=== PATIENT | male | born 1955 | race Caucasian/White ===

== ENCOUNTER 2017-03-27 12:06 | Observation (INO) | payer OTHER ==
[2017-03-27] VITALS (11 sets, daily range): BP systolic 123–215; BP diastolic 82–111; PULSE 73–95; RESP 16–22; TEMP 98.2–98.7; O2SAT 97–100
[~2017-03-27] VITALS: Ht 177.8 cm; Wt 95.5 kg
[~2017-03-27 12:06] MED LIST: ADVI200C9 PO; IBUP600T26 PO; METH750T2 PO; NAPR550 PO
[2017-03-27] MEDS ORDERED: NITROGLYCERIN 2% OINT 1 GM PACKET TOP ONE (12:30)
[2017-03-27] MEDS ORDERED: SODIUM CHLORIDE 0.9% FLUSH 10 ML FLUSH IVF PRN (12:30)
--- NOTE | 2017-03-27 12:32 | PD ---
HPI Chief Complaint: Cardiac Complaint Time Seen by Provider: 12:17 Travel History International Travel<30 days: No Contact w/Intl Traveler<30days: No Traveled to known affect area: No History of Present Illness HPI 62 y/o male presents with palpitations and gas-like feeling in his chest. He states he took 2 aspirin prior to coming in by ambulance today. His blood pressure was elevated with the ambulance team. He states he has not had his blood pressure checked for over a year and he doesn't remember what it was then. He does not take blood pressure medication. He states he has a lot of stressors going on in his life right now. He denies any thoughts of wanting to hurt himself. He denies any other concurrent complaints. Quality is gas-like. Severity is mild. PFSH Past Medical History Medical History: Denies Significant Hx Diminished Hearing: No Influenza Vaccination: No Social History Alcohol Use: Yes (RARELY) Tobacco Use: No Substance Use: No Allergies-Medications (Allergen,Severity, Reaction): Coded Allergies: Penicillins (Verified Allergy, Mild, 03/27/17) Reported Meds & Prescriptions Reported Meds & Active Scripts Active Robaxin (Methocarbamol) 750 Mg Tab 750 Mg PO TID PRN Ibuprofen 600 Mg Tab 600 Mg PO Q8H PRN Anaprox Ds (Naproxen Sodium) 550 Mg Tab 550 Mg PO BID Reported Advil (Ibuprofen) 200 Mg Cap 200 Mg PO DIRECTED Review of Systems Except as stated in HPI: all other systems reviewed are Neg Physical Exam Narrative GENERAL: Well-nourished, well-developed patient. SKIN: Warm and dry. HEAD: Normocephalic and atraumatic. EYES: No injection or drainage. ENT: No nasal drainage noted. NECK: Supple, trachea midline. CARDIOVASCULAR: Regular rate and rhythm RESPIRATORY: Breath sounds equal bilaterally. No accessory muscle use. GASTROINTESTINAL: Abdomen soft, non-tender, nondistended. EXTREMITIES: No edema. NEUROLOGICAL: Awake and alert. Motor and sensory grossly within normal limits. Normal speech. Data Data Last Documented VS Vital Signs Date Time Temp Pulse Resp B/P (MAP) Pulse Ox O2 Delivery O2 Flow Rate FiO2 03/27/17 14:43 78 18 152/94 (113) 99 Room Air Orders Orders Electrocardiogram (03/27/17 12:24) Ckmb (Isoenzyme) Profile (03/27/17 12:24) Complete Blood Count With Diff (03/27/17 12:24) Comprehensive Metabolic Panel (03/27/17 12:24) Magnesium (Mg) (03/27/17 12:24) Prothrombin Time / Inr (Pt) (03/27/17 12:24) Act Partial Throm Time (Ptt) (03/27/17 12:24) Troponin I (03/27/17 12:24) Lipase (03/27/17 12:24) Chest, Single Ap (03/27/17 12:24) Ecg Monitoring (03/27/17 12:24) Bilateral Bp Monitoring (03/27/17 12:24) Iv Access Insert/Monitor (03/27/17 12:24) Oximetry (03/27/17 12:24) Nitroglycerin 2% Oint (Nitroglycerin 2% (03/27/17 12:30) Sodium Chloride 0.9% Flush (Ns Flush) (03/27/17 12:30) Admit Order (Ed Use Only) (03/27/17 14:56) Labs Laboratory Tests Test 03/27/17 12:30 White Blood Count 5.8 TH/MM3 Red Blood Count 4.83 MIL/MM3 Hemoglobin 15.3 GM/DL Hematocrit 44.2 % Mean Corpuscular Volume 91.5 FL Mean Corpuscular Hemoglobin 31.7 PG Mean Corpuscular Hemoglobin Concent 34.6 % Red Cell Distribution Width 13.1 % Platelet Count 170 TH/MM3 Mean Platelet Volume 9.3 FL Neutrophils (%) (Auto) 54.8 % Lymphocytes (%) (Auto) 34.9 % Monocytes (%) (Auto) 7.5 % Eosinophils (%) (Auto) 2.0 % Basophils (%) (Auto) 0.8 % Neutrophils # (Auto) 3.2 TH/MM3 Lymphocytes # (Auto) 2.0 TH/MM3 Monocytes # (Auto) 0.4 TH/MM3 Eosinophils # (Auto) 0.1 TH/MM3 Basophils # (Auto) 0.0 TH/MM3 CBC Comment DIFF FINAL Differential Comment Prothrombin Time 11.3 SEC Prothromb Time International Ratio 1.0 RATIO Activated Partial Thromboplast Time 25.4 SEC Blood Urea Nitrogen 11 MG/DL Creatinine 1.18 MG/DL Random Glucose 120 MG/DL Total Protein 8.6 GM/DL Albumin 4.1 GM/DL Calcium Level 9.7 MG/DL Magnesium Level 1.7 MG/DL Alkaline Phosphatase 61 U/L Aspartate Amino Transf (AST/SGOT) 109 U/L Alanine Aminotransferase (ALT/SGPT) 129 U/L Total Bilirubin 0.7 MG/DL Sodium Level 135 MEQ/L Potassium Level 3.7 MEQ/L Chloride Level 103 MEQ/L Carbon Dioxide Level 23.3 MEQ/L Anion Gap 9 MEQ/L Estimat Glomerular Filtration Rate 62 ML/MIN Total Creatine Kinase 96 U/L Troponin I LESS THAN 0.02 NG/ML Lipase 205 U/L MDM Medical Decision Making Medical Screen Exam Complete: Yes Emergency Medical Condition: Yes Medical Record Reviewed: Yes (pmh confirmed) Interpretation(s) EKG is sinus rhythm at 90, mild ST depression V2, V3 without ST elevation or T- wave inversion CBC & BMP Diagram 03/27/17 12:30 Total Protein 8.6 H, Albumin 4.1, Calcium Level 9.7, Magnesium Level 1.7, Alkaline Phosphatase 61, Aspartate Amino Transf (AST/SGOT) 109 H, Alanine Aminotransferase (ALT/SGPT) 129 H, Total Bilirubin 0.7 Last 24 hours Impressions Chest X-Ray 03/27/17 1224 Signed Impressions: Service Date/Time: March 12:44 - CONCLUSION: The lungs are clear. Diony Maciel MD Differential Diagnosis Cardiac, anxiety, electrolyte abnormality, hypertensive urgency Narrative Course Will check blood work, chest x-ray and reevaluate ED workup no acute. Lengthy discussion with patient about chest pain observation for fullness to upper stomach with palpitation feeling and he agrees to monitoring which I think is appropriate given age and EKG changes with elevated blood pressure. Diagnosis Primary Impression: Chest pain Qualified Codes: R07.9 - Chest pain, unspecified Additional Impression: Hypertension Qualified Codes: I10 - Essential (primary) hypertension Admitting Information Admitting Physician Requests: Observation Lacey Ramos MD Mar 27, 2017 12:32
[2017-03-27 12:48] LABS: AUTOMATED NEUTROPHIL # 3.2 TH/MM3 (1.8-7.7); BASOPHIL % 0.8 % (0.0-2.0); EOSINOPHIL # 0.1 TH/MM3 (0-0.4); HEMATOCRIT 44.2 % (39.0-51.0); HEMO FLAGS DIFF FINAL; LYMPH % 34.9 % (9.0-44.0); MEAN CELL VOLUME 91.5 FL (80.0-100.0); MEAN CORPUSCULAR HEMOGLOBIN 31.7 PG (27.0-34.0); MEAN CORPUSCULAR HGB CONC 34.6 % (32.0-36.0); MONO % 7.5 % (0.0-8.0); NEUT % 54.8 % (16.0-70.0); PLATELET COUNT 170 TH/MM3 (150-450); RED BLOOD COUNT 4.83 MIL/MM3 (4.50-5.90); RED CELL DISTRIBUTION WIDTH 13.1 % (11.6-17.2); WHITE BLOOD COUNT 5.8 TH/MM3 (4.0-11.0)
[2017-03-27 12:57] LABS: APTT (PATIENT) 25.4 SEC (24.3-30.1); PROTHROMBIN TIME - PATIENT 11.3 SEC (9.8-11.6)
[2017-03-27 13:04] LABS: ANION GAP 9 MEQ/L (5-15); AST (GOT) 109 U/L (15-37); BICARBONATE 23.3 MEQ/L (21.0-32.0); BLOOD UREA NITROGEN 11 MG/DL (7-18); CHLORIDE 103 MEQ/L (98-107); GLOMERULAR FILTRATION RATE 62 ML/MIN (>89); MAGNESIUM 1.7 MG/DL (1.5-2.5); POTASSIUM 3.7 MEQ/L (3.5-5.1); SODIUM (NA) 135 MEQ/L (136-145)
[2017-03-27 13:06] LABS: ALT (GPT) 129 U/L (12-78)
[2017-03-27 13:09] LABS: ALKALINE PHOSPHATASE 61 U/L (45-117); TOTAL BILIRUBIN ADULT 0.7 MG/DL (0.2-1.0)
[2017-03-27 13:15] LABS: CREATINE KINASE 96 U/L (39-308)
--- NOTE | 2017-03-27 13:16 | RADRPT ---
EXAM DATE/TIME: 03/27/2017 12:44 [facility] COMPARISON: No previous studies available for comparison. INDICATIONS : Chest palpitations today. MEDICAL HISTORY : None. SURGICAL HISTORY : None. ENCOUNTER: Initial ACUITY: 1 day PAIN SCORE: 2/10 LOCATION: Bilateral chest FINDINGS: A single view of the chest demonstrates the lungs to be symmetrically aerated without evidence of mas s, infiltrate or effusion. The cardiomediastinal contours are unremarkable. Osseous structures are intact. CONCLUSION: The lungs are clear. Diony Maciel MD on March 27, 2017 at 13:05 Board Certified Radiologist. This report was verified electronically.
[2017-03-27] MEDS ORDERED: cloNIDine HCL 0.1 MG TAB PO PRN (16:00)
[2017-03-27] MEDS ORDERED: ALPRAZolam 0.25 MG TAB PO PRN (16:00)
[2017-03-27] MEDS: PANTOPRAZOLE SOD 40 MG DELAYED RELEASE TAB PO SCH (16:00)
[2017-03-27] MEDS ORDERED: LORazepam 2 MG/ML VIAL IV PUSH ONE (16:00)
[2017-03-27] MEDS ORDERED: ACETAMINOPHEN 500 MG CPLT PO PRN (16:00)
[2017-03-27] MEDS ORDERED: RESP: ALBUTEROL 2.5 MG/IPRATROPIUM 0.5 MG NEB (PRN) INH (16:00)
[2017-03-27] MEDS ORDERED: ACETAMINOPHEN/HYDROcodone 325 MG/7.5 MG TAB PO PRN (16:00)
[2017-03-27] MEDS ORDERED: SODIUM CHLORIDE 0.9% FLUSH 5 ML FLUSH IVF PRN (16:00)
[2017-03-27] MEDS ORDERED: ONDANSETRON HCL 4 MG/2 ML VIAL IV PUSH PRN (16:00)
--- NOTE | 2017-03-27 16:14 | HHI.HP ---
HPI Primary Care Physician No Primary Care Physician Chief Complaint Palpitations/rapid heart rate History of Present Illness 61 yo white male who has noticed some heart palpitations primarily after eating over the last few months. This morning after stooping to feed his cats, he had a short episode of fast heart rate that scared him. He had no pain at all, no SOB, no diaphoresis and no nausea. The palpitations lasted only a minute or so but he called [facility] because it scared him. He starts crying with multiple questions during the history and clearly is very anxious and admits to being emotionally upset. He has difficulty explaining what it is he is feeling, again crying repeatedly without being able to explain why. Stress includes living alone, no family here. Loss of estranged father in November. Loss of his job in December. Difficulty paying the bills and can't fing another job. Onset: this morning Character:palpitations only Location: Severity: Radiation: Duration:a minute or so Associated Symptoms: none Precipitating or Relieving Factors: Review of Systems Cardiovascular: COMPLAINS OF: See HPI Been feeling a lot of emotions and stress in recent months Past Family Social History Allergies: Coded Allergies: Penicillins (Verified Allergy, Mild, 03/27/17) Past Medical History None of significance Past Surgical History Surgery recently by Dr. 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 Denies ETOH, Drugs or illicit substances Physical Exam Vital Signs Vital Signs Date Time Temp Pulse Resp B/P (MAP) Pulse Ox O2 Delivery O2 Flow Rate FiO2 03/27/17 15:29 88 21 139/84 (102) 100 Room Air 03/27/17 14:43 78 18 152/94 (113) 99 Room Air 03/27/17 13:50 80 16 166/98 (120) 99 03/27/17 12:28 91 16 192/111 (138) 100 Room Air 03/27/17 12:24 93 Room Air 03/27/17 12:18 95 21 215/106 (142) 99 Physical Exam GENERAL: WNWD but very anxious SKIN: Warm and dry. Tattoo HEAD: Atraumatic. Normocephalic. EYES: Pupils equal and round. No scleral icterus. No injection or drainage. EOMI ENT: No nasal bleeding or discharge. Mucous membranes pink and moist. NECK: Trachea midline. No JVD. CARDIOVASCULAR: Regular rate and rhythm. NO GRM RESPIRATORY: Auscultation. Breath sounds equal bilaterally. GASTROINTESTINAL: Abdomen soft, non-tender, nondistended. No GR. Hepatic and splenic margins not palpable. MUSCULOSKELETAL: Extremities without clubbing, cyanosis, or edema. No obvious deformities. NEUROLOGICAL: Awake and alert. No obvious cranial nerve deficits. Motor grossly within normal limits. Five out of 5 muscle strength in the arms and legs. Normal speech. PSYCHIATRIC: Anxious mood and affect; insight and judgment questionable.. Laboratory Laboratory Tests Test 03/27/17 12:30 White Blood Count 5.8 Red Blood Count 4.83 Hemoglobin 15.3 Hematocrit 44.2 Mean Corpuscular Volume 91.5 Mean Corpuscular Hemoglobin 31.7 Mean Corpuscular Hemoglobin Concent 34.6 Red Cell Distribution Width 13.1 Platelet Count 170 Mean Platelet Volume 9.3 Neutrophils (%) (Auto) 54.8 Lymphocytes (%) (Auto) 34.9 Monocytes (%) (Auto) 7.5 Eosinophils (%) (Auto) 2.0 Basophils (%) (Auto) 0.8 Neutrophils # (Auto) 3.2 Lymphocytes # (Auto) 2.0 Monocytes # (Auto) 0.4 Eosinophils # (Auto) 0.1 Basophils # (Auto) 0.0 CBC Comment DIFF FINAL Differential Comment Prothrombin Time 11.3 Prothromb Time International Ratio 1.0 Activated Partial Thromboplast Time 25.4 Blood Urea Nitrogen 11 Creatinine 1.18 Random Glucose 120 Total Protein 8.6 Albumin 4.1 Calcium Level 9.7 Magnesium Level 1.7 Alkaline Phosphatase 61 Aspartate Amino Transf (AST/SGOT) 109 Alanine Aminotransferase (ALT/SGPT) 129 Total Bilirubin 0.7 Sodium Level 135 Potassium Level 3.7 Chloride Level 103 Carbon Dioxide Level 23.3 Anion Gap 9 Estimat Glomerular Filtration Rate 62 Total Creatine Kinase 96 Troponin I LESS THAN 0.02 Lipase 205 Result Diagram: 03/27/17 1230 03/27/17 1230 Imaging CXR NEG Course Will relieve his anxiety, evaluate and manage the BP and R.O ischemia by protocol Caprini VTE Risk Assessment Caprini VTE Risk Assessment: No/Low Risk (score <= 1) Caprini Risk Assessment Model Point Value = 1 Point Value = 2 Point Value = 3 Point Value = 5 Age 41-60 Minor surgery BMI > 25 kg/m2 Swollen legs Varicose veins or History of unexplained or recurrent spontaneous Oral contraceptives or hormone replacement Sepsis (< 1 month) Serious lung disease, including pneumonia (< 1 month) Abnormal pulmonary function Acute myocardial infarction Congestive heart failure (< 1 month) History of inflammatory bowel disease Medical patient at bed rest Age 61-74 Arthroscopic surgery Major open surgery (> 45 min) Laparoscopic surgery (> 45 min) Malignancy Confined to bed (> 72 hours) Immobilizing plaster cast Central venous access Age >= 75 History of VTE Family history of VTE Factor V Leiden Prothrombin [id number] Lupus anticoagulant Anticardiolipin antibodies Elevated serum homocysteine Heparin-induced thrombocytopenia Other congenital or acquired thrombophilia Stroke (< 1 month) Elective arthroplasty Hip, pelvis, or leg fracture Acute spinal cord injury (< 1 month) Prophylaxis Regimen Total Risk Factor Score Risk Level Prophylaxis Regimen 0-1 Low Early ambulation 2 Moderate Order ONE of the following: *Sequential Compression Device (SCD) *Heparin 5000 units SQ BID 3-4 Higher Order ONE of the following medications: *Heparin 5000 units SQ TID *Enoxaparin/Lovenox 40 mg SQ daily (WT < 150 kg, CrCl > 30 mL/min) *Enoxaparin/Lovenox 30 mg SQ daily (WT < 150 kg, CrCl > 10-29 mL/min) *Enoxaparin/Lovenox 30 mg SQ BID (WT < 150 kg, CrCl > 30 mL/min) AND/OR *Sequential Compression Device (SCD) 5 or more Highest Order ONE of the following medications: *Heparin 5000 units SQ TID (Preferred with Epidurals) *Enoxaparin/Lovenox 40 mg SQ daily (WT < 150 kg, CrCl > 30 mL/min) *Enoxaparin/Lovenox 30 mg SQ daily (WT < 150 kg, CrCl > 10-29 mL/min) *Enoxaparin/Lovenox 30 mg SQ BID (WT < 150 kg, CrCl > 30 mL/min) AND *Sequential Compression Device (SCD) Benigno Chávez MD Mar 27, 2017 16:14
[2017-03-27 18:41] LABS: CREATINE KINASE 83 U/L (39-308)
[2017-03-27 19:04] LABS: CREATINE KINASE 85 U/L (39-308)
[2017-03-27] MEDS: SODIUM CHLORIDE 0.9% FLUSH 5 ML FLUSH IVF SCH (21:00)
[2017-03-28] VITALS: PULSE 72
[2017-03-28 00:03] VITALS: BP 117/69; PULSE 75; RESP 18; TEMP 98.4; O2SAT 97
[2017-03-28 03:46] VITALS: BP 115/69; PULSE 63; RESP 17; TEMP 98.2; O2SAT 98
[2017-03-28 04:00] VITALS: PULSE 66
[2017-03-28 07:11] VITALS: O2SAT 95
[2017-03-28 08:00] VITALS: BP 132/85; PULSE 64; RESP 16; TEMP 97.6; O2SAT 96
[2017-03-28] MEDS: PANTOPRAZOLE SOD 40 MG DELAYED RELEASE TAB PO SCH (09:00)
[2017-03-28] MEDS: SODIUM CHLORIDE 0.9% FLUSH 5 ML FLUSH IVF SCH (09:00)
[2017-03-28] MEDS ORDERED: ASPIRIN 325 MG TAB PO SCH (09:00)
--- NOTE | 2017-03-28 09:39 | PD.CARD.PN ---
Subjective Subjective Remarks No complaints overnight. Expresses concern over completing any form of cardiac testing, stating he would like to go home. Objective Medications Current Medications Medications (Trade) Dose Ordered Sig/Karma Route Start Time Stop Time Status Last Admin (NS Flush) 2 ml UNSCH PRN IVF 03/27/17 12:30 (NS Flush) 2 ml UNSCH PRN IVF 03/27/17 16:00 (NS Flush) 2 ml BID IVF 03/27/17 21:00 03/27/17 21:00 (Tylenol) 500 mg Q4H PRN PO 03/27/17 16:00 ([place] 7.5-325 Mg) 1 tab Q4H PRN PO 03/27/17 16:00 (Zofran Inj) 4 mg Q6H PRN IV PUSH 03/27/17 16:00 (Protonix) 40 mg DAILY PO 03/27/17 16:00 (Aspirin) 325 mg DAILY PO 03/28/17 09:00 (Xanax) 0.25 mg Q8H PRN PO 03/27/17 16:00 (Duoneb Neb) 1 ampule Q4HR NEB PRN INH 03/27/17 16:00 (Catapres) 0.1 mg Q4H PRN PO 03/27/17 16:00 Vital Signs / I&O Vital Signs Date Time Temp Pulse Resp B/P (MAP) Pulse Ox O2 Delivery O2 Flow Rate FiO2 03/28/17 08:00 97.6 64 16 132/85 (101) 96 03/28/17 07:11 95 21 03/28/17 04:00 66 03/28/17 03:46 98.2 63 17 115/69 (84) 98 03/28/17 00:03 98.4 75 18 117/69 (85) 97 03/28/17 00:00 72 03/27/17 20:25 98 21 03/27/17 20:00 84 03/27/17 19:42 98.2 82 17 123/82 (96) 97 03/27/17 17:54 80 18 166/98 (120) 99 03/27/17 17:29 98.7 73 22 159/97 (117) 99 03/27/17 17:07 98 21 03/27/17 15:29 88 21 139/84 (102) 100 Room Air 03/27/17 14:43 78 18 152/94 (113) 99 Room Air 03/27/17 13:50 80 16 166/98 (120) 99 03/27/17 12:28 91 16 192/111 (138) 100 Room Air 03/27/17 12:24 93 Room Air 03/27/17 12:18 95 21 215/106 (142) 99 Physical Exam Gen: A+Ox3, no acute distress, appears moderately anxious, WD, WN Cardiac: RRR, no rub, gallop, or murmur, Resp: Lungs CTA, roomair, able to speak in full sentences, symmetrical Skin: Warm, dry Psych: Appropriate speech, affect. Moderately anxious. Judgment may be slightly altered due to anxiety as he states "he wants to go home to feed cats." Laboratory Laboratory Tests Test 03/27/17 12:30 03/27/17 18:00 03/27/17 18:30 White Blood Count 5.8 TH/MM3 Red Blood Count 4.83 MIL/MM3 Hemoglobin 15.3 GM/DL Hematocrit 44.2 % Mean Corpuscular Volume 91.5 FL Mean Corpuscular Hemoglobin 31.7 PG Mean Corpuscular Hemoglobin Concent 34.6 % Red Cell Distribution Width 13.1 % Platelet Count 170 TH/MM3 Mean Platelet Volume 9.3 FL Neutrophils (%) (Auto) 54.8 % Lymphocytes (%) (Auto) 34.9 % Monocytes (%) (Auto) 7.5 % Eosinophils (%) (Auto) 2.0 % Basophils (%) (Auto) 0.8 % Neutrophils # (Auto) 3.2 TH/MM3 Lymphocytes # (Auto) 2.0 TH/MM3 Monocytes # (Auto) 0.4 TH/MM3 Eosinophils # (Auto) 0.1 TH/MM3 Basophils # (Auto) 0.0 TH/MM3 CBC Comment DIFF FINAL Differential Comment Prothrombin Time 11.3 SEC Prothromb Time International Ratio 1.0 RATIO Activated Partial Thromboplast Time 25.4 SEC Blood Urea Nitrogen 11 MG/DL Creatinine 1.18 MG/DL Random Glucose 120 MG/DL Total Protein 8.6 GM/DL Albumin 4.1 GM/DL Calcium Level 9.7 MG/DL Magnesium Level 1.7 MG/DL Alkaline Phosphatase 61 U/L Aspartate Amino Transf (AST/SGOT) 109 U/L Alanine Aminotransferase (ALT/SGPT) 129 U/L Total Bilirubin 0.7 MG/DL Sodium Level 135 MEQ/L Potassium Level 3.7 MEQ/L Chloride Level 103 MEQ/L Carbon Dioxide Level 23.3 MEQ/L Anion Gap 9 MEQ/L Estimat Glomerular Filtration Rate 62 ML/MIN Total Creatine Kinase 96 U/L 83 U/L 85 U/L Troponin I LESS THAN 0.02 NG/ML LESS THAN 0.02 NG/ML LESS THAN 0.02 NG/ML Lipase 205 U/L Imaging Last 24 hours Impressions Chest X-Ray 03/27/17 1224 Signed Impressions: Service Date/Time: March 12:44 - CONCLUSION: The lungs are clear. Diony Maciel MD Assessment and Plan Assessment and Plan #1 Atypical chest pain-ruled out with 3 sets of EKG and cardiac enzymes. Discussed difference between chemical and exercise cardiac testing. Dr. Chávez also spoke with patient in length regarding cardiac testing. After discussion with Dr. Chávez, patient feels more comfortable completing an exercise stress test this morning. If cardiac stress test unremarkable, plans to discharge home later this morning. Patient agreeable to plan of care. #2 Anxiety-Xanax PRN previously ordered, however does not feel comfortable taking medication Elyssa Guerrero Mar 28, 2017 09:39
--- NOTE | 2017-03-28 10:36 | EKG ---
Date Performed: 03/27/2017 Time Performed: 19:47:47 PTAGE: 62 years EKG: Sinus rhythm NONSPECIFIC ST ELEVATION AND DEPRESSION IN V2 BORDERLINE ECG NO SIG CHANGE PREVIOUS TRACING : 03/27/2017 17.43 DOCTOR: Benigno Chávez Interpretating Date/Time 03/28/2017 10:34:17
--- NOTE | 2017-03-28 10:36 | EKG ---
Date Performed: 03/27/2017 Time Performed: 17:43:51 PTAGE: 62 years EKG: Sinus rhythm NS ST-T CHANGES BUT LARGLY UNCHANGED FROM PRIOR BORDERLINE ECG PREVIOUS TRACING : 03/27/2017 12.21 DOCTOR: Benigno Chávez Interpretating Date/Time 03/28/2017 10:35:36
--- NOTE | 2017-03-28 10:37 | EKG ---
Date Performed: 03/27/2017 Time Performed: 12:21:14 PTAGE: 62 years EKG: Sinus rhythm WITH FIRST DEGREE AV BLOCK MINIMAL ST DEPRESSION ABNORMAL ECG NO SIG CHANGE NO PREVIOUS TRACING DOCTOR: Benigno Chávez Interpretating Date/Time 03/28/2017 10:37:38
[2017-03-28] MEDS ORDERED: RANI150C PO (11:07)
--- NOTE | 2017-03-28 11:09 | HHI.DCPOC ---
Discharge Care Plan Diagnosis: (1) Atypical chest pain (2) Situational stress (3) GERD (gastroesophageal reflux disease) Goals to Promote Your Health * To prevent worsening of your condition and complications * To maintain your health at the optimal level Directions to Meet Your Goals Take your medications as prescribed Follow your dietary instruction Follow activity as directed Keep your appointments as scheduled Take your immunizations and boosters as scheduled If your symptoms worsen call your PCP, if no PCP go to Urgent Care Center or Emergency Room Smoking is Dangerous to Your Health. Avoid second hand smoke Call the 24-hour hour crisis hotline for domestic abuse at Elyssa Guerrero Mar 28, 2017 11:09
--- NOTE | 2017-03-28 11:12 | HHI.DS ---
Discharge Summary Admission Date Mar 27, 2017 at 14:58 Discharge Date: Mar 28, 2017 Admitting Diagnosis chest pain (1) GERD (gastroesophageal reflux disease) ICD Codes: K21.9 - Gastro-esophageal reflux disease without esophagitis (2) Atypical chest pain ICD Codes: R07.89 - Other chest pain (3) Situational stress ICD Codes: F43.9 - Reaction to severe stress, unspecified Brief History 62-year-old male presented to the emergency room for further evaluation of palpitations. Endorses current situational stress and anxiety. The chest pain center. Ruled out with 3 sets of EKGs and cardiac enzymes. Proceed with exercise stress test, no signs of ischemia. CBC/BMP: 03/27/17 1230 03/27/17 1230 Significant Findings Laboratory Tests Test 03/27/17 12:30 03/27/17 18:00 03/27/17 18:30 Random Glucose 120 MG/DL (74-106) Total Protein 8.6 GM/DL (6.4-8.2) Aspartate Amino Transf (AST/SGOT) 109 U/L (15-37) Alanine Aminotransferase (ALT/SGPT) 129 U/L (12-78) Sodium Level 135 MEQ/L (136-145) Estimat Glomerular Filtration Rate 62 ML/MIN (>89) Troponin I LESS THAN 0.02 NG/ML LESS THAN 0.02 NG/ML LESS THAN 0.02 NG/ML Imaging Last Impressions Chest X-Ray 03/27/17 1224 Signed Impressions: Service Date/Time: March 12:44 - CONCLUSION: The lungs are clear. Diony Maciel MD PE at Discharge GENERAL: Alert WN, WD, NAD, anxious, male HEAD: NC, AT CV: RRR, without murmur, rub, gallop, no JVD, S1-S2 no S3-S4. RESP: Clear lungs throughout bilateral, no crackles, wheeze, rhonchi, symmetrical chest rise, nonlabored, able to speak in full sentences EXT: Pulses +24, no dependent edema MS: Normal tone 4 extremities, full range of motion NEURO: motor strength 5/5, gait WNL PSYCH: A+O 3, pleasant affect, appropriate speech, mood, insight and judgment. Anxiety improved after completing exercise stress testing. Pt Condition on Discharge: Good Discharge Disposition: Discharge Home Discharge Instructions DIET: Follow Instructions for: Heart Healthy Diet Activities you can perform: Regular-No Restrictions Elyssa Guerrero Mar 28, 2017 11:12
--- NOTE | 2017-03-28 16:38 | TR ---
Date Performed: 03/28/2017 Time Performed: 09:52:39 DOCTOR: Benigno Chávez DRUG LIST: CLINICAL HISTORY: CHEST PAIN REASON FOR TEST: REASON FOR ENDING: OBSERVATION: CONCLUSION: Jefe protocol completed. Stopped sec to leg fatigue, concern over being able to wal [place] safely in next stage, and reaching target heart rate. Maximum YL=325 Target HR Achieved=86.0% Maxim um ZU=119/80 Total Exercise Time=3:01. No reprod chest discomfort. No st segment changes to sugg isch emia. Occassional PVCs. Normal bp response. Recovery quick and unremarkable. COMMENTS: Low probability for severe ischemic event. He did show some ST depression but this wa s associated with upsloping ST segments, not diagnostic of ischemia. However, FU evaluation with his PCP and repeat testing in the future is recommended.
== END 2017-03-28 12:45 | disposition home or self-care (01) ==
LOC: NEPC 12:06 → NEDA 14:58 → NEPFCDU 17:05
PROVIDERS: ADMIT Internal Medicine Cardiovascular Disease; ATTEND Internal Medicine Cardiovascular Disease
DX: R07.89 Other chest pain (principal); I10 Essential (primary) hypertension; F41.9 Anxiety disorder, unspecified; K21.9 Gastro-esophageal reflux disease without esophagitis; F43.9 Reaction to severe stress, unspecified; R94.31 Abnormal electrocardiogram [ECG] [EKG]
CPT/HCPCS: 71010; 80053; 82550; 83690; 83735; 84484; 85025; 85610; 85730; 93005; 93017; 99285; G0378

== ENCOUNTER 2017-08-17 19:38 | Emergency (ER) | payer SELFPAY ==
[~2017-08-17] VITALS: Ht 180.3 cm; Wt 91.6 kg
[~2017-08-17 19:38] MED LIST changes: -ADVI200C9 PO; -IBUP600T26 PO; -METH750T2 PO; -NAPR550 PO; +RANI150C PO
[2017-08-17 19:47] VITALS: BP 160/93; PULSE 67; RESP 18; TEMP 97.8; O2SAT 97
[2017-08-17 22:09] VITALS: BP 161/94; PULSE 63; RESP 18; O2SAT 98
--- NOTE | 2017-08-17 22:19 | PD ---
HPI Chief Complaint: cough Time Seen by Provider: 21:51 Travel History International Travel<30 days: No Contact w/Intl Traveler<30days: No Traveled to known affect area: No History of Present Illness HPI 62yo M with no significant PMH presents to the ED with c/o cough and hiccup since yesterday. Said he was at work when he felt throat irritation and then started coughing. After coughing, he had hiccups. Said he had intermittent nausea but that has resolved. Unknown if it was perfume or some other spray that irritated him. Denies any fever, chest pain, sob, vomiting, abdominal pain , focal weakness or numbness. PFSH Past Medical History Blood Disorders: No Anxiety: Yes Depression: Yes Cancer: No Cardiovascular Problems: Yes Chest Pain: Yes Diminished Hearing: No Endocrine: No Gastrointestinal Disorders: No Genitourinary: No Hypertension: Yes Immune Disorder: No Implanted Vascular Access Dvce: No Musculoskeletal: Yes (left shoulder -rotator cuff) Neurologic: No Psychiatric: Yes Reproductive: No Respiratory: No Tetanus Vaccination: > 5 Years Influenza Vaccination: No Past Surgical History Other Surgery: Yes (leftr shoulder ) Family History Family Myocardial Infarction: No Social History Alcohol Use: Yes (RARELY) Tobacco Use: No Substance Use: No Allergies-Medications (Allergen,Severity, Reaction): Coded Allergies: Penicillins (Verified Allergy, Mild, 08/17/17) Reported Meds & Prescriptions Reported Meds & Active Scripts Active Ranitidine (Ranitidine HCl) 150 Mg Cap 150 Mg PO DAILY Review of Systems Except as stated in HPI: all other systems reviewed are Neg Physical Exam Narrative GENERAL: 62yo M not in distress. SKIN: Focused skin assessment warm/dry. HEAD: Atraumatic. Normocephalic. EYES: Pupils equal and round. No scleral icterus. No injection or drainage. ENT: Throat: Clear. Uvula midline. NECK: Trachea midline. No JVD. CARDIOVASCULAR: Regular rate and rhythm. No murmur appreciated. RESPIRATORY: No accessory muscle use. Clear to auscultation. Breath sounds equal bilaterally. GASTROINTESTINAL: Abdomen soft, non-tender, nondistended. +Umbilical hernia that is soft and reducible and not tender to palpation. MUSCULOSKELETAL: No obvious deformities. No clubbing. No cyanosis. No edema. NEUROLOGICAL: Awake and alert. No obvious cranial nerve deficits. Motor grossly within normal limits. Normal speech. PSYCHIATRIC: Appropriate mood and affect; insight and judgment normal. Data Data Last Documented VS Vital Signs Date Time Temp Pulse Resp B/P (MAP) Pulse Ox O2 Delivery O2 Flow Rate FiO2 08/17/17 22:09 63 18 161/94 (116) 98 Room Air 08/17/17 19:47 97.8 Orders Orders Chest, Single Ap (08/17/17 ) Guaifen-Cod 200-20 Mg/10ml Liq (Robituss (08/17/17 23:00) MDM Medical Decision Making Medical Screen Exam Complete: Yes Emergency Medical Condition: Yes Differential Diagnosis anxiety vs. throat irritation vs. pneumonia Narrative Course 62yo M here with c/o cough and hiccup since yesterday. Pt said he was having hiccup in the waiting room but now has resolved. Vital signs unremarkable except mildly elevated blood pressure. O2 sat is 98% on RA. Pt only coughs when he tries to take exaggerated deep breathing. Seems a little forceful to me but pt given robitussin with codeine. CXR showed no acute disease. Pt reassured. Pt observed in the ED and has no hiccups. Pt denies any chest pain , sob, abdominal pain to me. Return precautions given. Diagnosis Primary Impression: Cough Patient Instructions: General Instructions Departure Forms: Tests/Procedures Additional Instructions: Please follow up with your primary care physician in 2-3 days. Return to the ED if symptoms worsen. Med/Other Pt SpecificInfo: Prescription(s) given Scripts Dextromethorphan (Robitussin Lingering Cold) 15 Mg Cap 30 MG PO Q8H Y for COUGH for 3 Days, #18 CAP 0 Refills Prov: LuisRuchi DO 08/17/17 Disposition: 01 DISCHARGE HOME Condition: Stable Ruchi Smith DO Aug 17, 2017 22:19
--- NOTE | 2017-08-17 22:54 | RADRPT ---
EXAM DATE/TIME: 08/17/2017 22:20 [facility] COMPARISON: CHEST SINGLE AP, March 27, 2017, 12:44. INDICATIONS : Patient states that he has persistant cough which has led to uncontrollable hiccups. MEDICAL HISTORY : None. SURGICAL HISTORY : None. ENCOUNTER: Initial ACUITY: 3 days PAIN SCORE: 0/10 LOCATION: Bilateral upper chest FINDINGS: A single view of the chest demonstrates the lungs to be symmetrically aerated without evidence of mas s, infiltrate or effusion. The cardiomediastinal contours are unremarkable. Osseous structures are intact. CONCLUSION: No acute disease. Jason Nye MD on August 17, 2017 at 22:52 Board Certified Radiologist. This report was verified electronically.
[2017-08-17] MEDS ORDERED: ROBICAP2 PO (22:57)
[2017-08-17] MEDS ORDERED: guaiFENesin/CODEINE SYRUP 200 MG/20 MG/10 ML CUP PO ONE (23:00)
== END 2017-08-17 23:34 | disposition home or self-care (01) ==
LOC: PHED 19:38
DX: R05 Cough (principal); R06.6 Hiccough; F41.9 Anxiety disorder, unspecified; F32.9 Major depressive disorder, single episode, unspecified; I10 Essential (primary) hypertension; Z79.899 Other long term (current) drug therapy; Z88.0 Allergy status to penicillin
CPT/HCPCS: 71045; 99283